=== PATIENT | female | born 1990 | race Two or more races ===

== ENCOUNTER 2018-03-13 12:32 | Emergency (ER) | payer MEDICAID ==
[~2018-03-13] VITALS: Ht 160 cm; Wt 50.0 kg
[2018-03-13] MEDS ORDERED: LIDOCAINE 5% TRANSDERMAL PATCH TD ONE (13:45)
[2018-03-13] MEDS ORDERED: IBUPROFEN 400 MG TABLET PO ONE (13:45)
[2018-03-13 14:12] VITALS: BP 124/68
== END 2018-03-13 15:26 | disposition home or self-care (01) ==
LOC: EMS 12:34 → EDSEX 12:34 → EMS 15:26
DX: R07.81 Pleurodynia (principal); Y04.1XXA Assault by human bite, initial encounter; Y93.89 Activity, other specified; Y92.89 Other specified places as the place of occurrence of the external cause; Y99.8 Other external cause status